=== PATIENT | male | born 1985 | race Asian ===

== ENCOUNTER 2025-09-06 10:14 | Outpatient (CLI) | payer BC ==
[2025-09-06 11:52] LABS: #Basophils 0.10 10x3/uL (0.0-0.2); #Eosinophils 0.13 10x3/uL (0.0-0.7); #Monocytes 0.54 10x3/uL (0.11-0.59); #Neutrophils 3.84 10x3/uL (1.40-6.50); %Basophils 1.5 % (0.0-1.0); %Eosinophils 1.9 % (0.0-10.0); %Lymphocytes 32.1 % (21.0-51.0); %Monocytes 7.9 % (0.0-10.0); %Neutrophils 56.0 % (42.0-75.0); Hematocrit 38.2 % (42.0-52.0); Hemoglobin 12.1 g/dL (14.0-18.0); Mean Corpuscular Hemoglobin 30.4 pg (27.0-31.0); Mean Corpuscular Volume 96.0 fL (78.0-98.0); Platelet Count 228 10x3/uL (130-400); Red Blood Cell (RBC) Count 3.98 mill/uL (4.70-6.10); White Blood Cell (WBC) Count 6.85 10x3/uL (4.8-10.8)
[2025-09-06 12:05] LABS: INR-International Normal Ratio 1.0; PTT 40.4 sec (22.9-36.1); Prothrombin Time 13.0 sec (12.0-14.7)
[2025-09-06 12:13] LABS: Anion Gap 13 mmol/L (10-20); BUN (Urea Nitrogen) 20 mg/dL (8.9-20.6); Calc. Creatinine Clearance 0 mL/min (70-130); Calcium 9.7 mg/dL (7.8-10.44); Carbon Dioxide 32 mmol/L (22-29); Chloride 98 mmol/L (98-107); Glucose 96 mg/dL (70-105); Potassium 3.9 mmol/L (3.5-5.1); Sodium 139 mmol/L (136-145)
== END 2025-09-06 10:15 | disposition home or self-care (01) ==
LOC: LABBT 10:14
PROVIDERS: ATTEND Surgery
DX: Z01.818 Encounter for other preprocedural examination (principal); N18.6 End stage renal disease
CPT/HCPCS: 71046; 80048; 85025; 85610; 85730; 93005; 93010

== ENCOUNTER 2025-09-10 09:32 | Day surgery (SDC) | payer BC ==
[2025-09-06 10:59] VITALS: BMI 50.8
[2025-09-10 11:35] LABS: Potassium 4.0 mmol/L (3.5-5.1)
[2025-09-10] MEDS ORDERED: Heparin 10,000 UNITS/ 10 ML VIAL ONE (11:58)
[2025-09-10] MEDS ORDERED: Heparin 5,000 UNITS/ML VIAL ONE (11:59)
[2025-09-10] MEDS ORDERED: Bupivacaine 0.25% HCL 30 ML VIAL ONE (11:59)
[2025-09-10] MEDS ORDERED: Lidocaine 1% (PF) 30 ML VIAL ONE (11:59)
[2025-09-10] MEDS ORDERED: PROPOFOL 60 ML ONE (12:01)
[2025-09-10] MEDS ORDERED: fentaNYL PF 100 MCG/2 ML SYRINGE ONE ×3 (12:09→15:27)
[2025-09-10] MEDS ORDERED: Vancomycin 1 GM/200 ML (FROZEN) BAG ONE (12:11)
[2025-09-10] MEDS ORDERED: Lidocaine 2% PF 100 mg/5 ml Syringe ONE (12:29)
[2025-09-10] MEDS ORDERED: SUCCINYLCHOLINE/SOD CL,ISO/PF 200 MG/10 ML SYRINGE FS ONE (12:29)
[2025-09-10] MEDS ORDERED: Bacitracin Zinc Ointment 30 gm TUBE ONE (13:25)
[2025-09-10] MEDS ORDERED: Ondansetron PF 4 MG/2 ML Vial ONE ×2 (14:37→16:17)
[2025-09-10] MEDS ORDERED: hydrALAZINE 20 MG/ML VIAL ONE (15:15)
[2025-09-10] MEDS ORDERED: HYDROmorphone 0.5 MG/0.5 ML SYRINGE ONE ×3 (15:22→15:45)
[2025-09-10] MEDS ORDERED: HYDROcodone/Acetaminophen 5/325 mg Tablet ONE (16:02)
== END 2025-09-10 16:47 | disposition home or self-care (01) ==
LOC: SDC 09:32
PROVIDERS: ATTEND Surgery
PROC: 03WY03Z Revision of Infusion Device in Upper Artery, Open Approach (ICD-10-PCS; principal; 2025-09-10)
DX: I12.0 Hypertensive chronic kidney disease with stage 5 chronic kidney disease or end stage renal disease (principal); N18.6 End stage renal disease; Z98.84 Bariatric surgery status; Z79.899 Other long term (current) drug therapy
CPT/HCPCS: 36416; 84132; A6258; C1713; J0169; J0360; J0665; J1171; J1642; J1644; J2003; J2405; J2704; J2720; J3373

== ENCOUNTER 2025-10-04 10:33 | Outpatient (CLI) | payer BC ==
[2025-10-04 11:26] LABS: #Basophils 0.08 10x3/uL (0.0-0.2); #Eosinophils 0.17 10x3/uL (0.0-0.7); #Monocytes 0.39 10x3/uL (0.11-0.59); #Neutrophils 3.62 10x3/uL (1.40-6.50); %Basophils 1.2 % (0.0-1.0); %Eosinophils 2.6 % (0.0-10.0); %Lymphocytes 33.8 % (21.0-51.0); %Monocytes 6.0 % (0.0-10.0); %Neutrophils 55.8 % (42.0-75.0); Hematocrit 34.2 % (42.0-52.0); Hemoglobin 10.9 g/dL (14.0-18.0); Mean Corpuscular Hemoglobin 30.9 pg (27.0-31.0); Mean Corpuscular Volume 96.9 fL (78.0-98.0); Platelet Count 246 10x3/uL (130-400); Red Blood Cell (RBC) Count 3.53 mill/uL (4.70-6.10); White Blood Cell (WBC) Count 6.50 10x3/uL (4.8-10.8)
[2025-10-04 11:38] LABS: INR-International Normal Ratio 1.0; PTT 37.8 sec (22.9-36.1); Prothrombin Time 13.5 sec (12.0-14.7)
[2025-10-04 11:41] LABS: Anion Gap 13 mmol/L (10-20); BUN (Urea Nitrogen) 23 mg/dL (8.9-20.6); Calc. Creatinine Clearance 0 mL/min (70-130); Calcium 9.2 mg/dL (7.8-10.44); Carbon Dioxide 31 mmol/L (22-29); Chloride 97 mmol/L (98-107); Glucose 95 mg/dL (70-105); Potassium 4.0 mmol/L (3.5-5.1); Sodium 137 mmol/L (136-145)
== END 2025-10-04 10:34 | disposition home or self-care (01) ==
LOC: LABBT 10:33
PROVIDERS: ATTEND Surgery
DX: Z01.812 Encounter for preprocedural laboratory examination (principal); N18.6 End stage renal disease; T82.590D Other mechanical complication of surgically created arteriovenous fistula, subsequent encounter
CPT/HCPCS: 80048; 85025; 85610; 85730

== ENCOUNTER 2025-10-05 06:23 | Inpatient (IN) | payer BC ==
[2025-10-05 08:40] LABS: Potassium 3.8 mmol/L (3.5-5.1)
[2025-10-05] MEDS ORDERED: Lidocaine 1% (PF) 30 ML VIAL ONE (09:19)
[2025-10-05] MEDS ORDERED: Heparin 5,000 UNITS/ML VIAL ONE (09:19)
[2025-10-05] MEDS ORDERED: Vancomycin 1 GM/200 ML (FROZEN) BAG ONE (09:29)
[2025-10-05] MEDS ORDERED: Ondansetron PF 4 MG/2 ML Vial ONE (09:38)
[2025-10-05] MEDS ORDERED: Lidocaine 1% PF 5 ML VIAL ONE (09:38)
[2025-10-05] MEDS ORDERED: PROPOFOL 200 MG/20 ML VIAL ONE (10:10)
[2025-10-05] MEDS ORDERED: fentaNYL PF 100 MCG/2 ML SYRINGE ONE ×2 (11:07→11:54)
[2025-10-05] MEDS ORDERED: HYDROmorphone 0.5 MG/0.5 ML SYRINGE ONE ×3 (11:07→13:37)
[2025-10-05] MEDS ORDERED: Acetaminophen 325 MG TAB PO PRN (11:26)
[2025-10-05 14:05] LABS: #Basophils 0.09 10x3/uL (0.0-0.2); #Eosinophils 0.05 10x3/uL (0.0-0.7); #Monocytes 0.23 10x3/uL (0.11-0.59); #Neutrophils 3.77 10x3/uL (1.40-6.50); %Basophils 1.5 % (0.0-1.0); %Eosinophils 0.9 % (0.0-10.0); %Lymphocytes 28.6 % (21.0-51.0); %Monocytes 3.9 % (0.0-10.0); %Neutrophils 64.6 % (42.0-75.0); Hematocrit 37.3 % (42.0-52.0); Hemoglobin 11.4 g/dL (14.0-18.0); Mean Corpuscular Hemoglobin 29.9 pg (27.0-31.0); Mean Corpuscular Volume 97.9 fL (78.0-98.0); Platelet Count 264 10x3/uL (130-400); Red Blood Cell (RBC) Count 3.81 mill/uL (4.70-6.10); White Blood Cell (WBC) Count 5.84 10x3/uL (4.8-10.8)
[2025-10-05 14:22] LABS: ALT (SGPT) 12 U/L (Less than 45); AST (SGOT) 21 U/L (11-34); Albumin 3.7 g/dL (3.1-4.5); Alkaline Phosphatase 75 U/L (40-110); Anion Gap 18 mmol/L (10-20); BUN (Urea Nitrogen) 37 mg/dL (8.9-20.6); Bilirubin, Total 0.3 mg/dL (0.3-1.2); Calc. Creatinine Clearance 38 mL/min (70-130); Calcium 9.9 mg/dL (7.8-10.44); Carbon Dioxide 26 mmol/L (22-29); Chloride 99 mmol/L (98-107); Globulin 3.6 g/dL (2.4-3.5); Glucose 100 mg/dL (70-105); Potassium 3.9 mmol/L (3.5-5.1); Sodium 139 mmol/L (136-145)
[2025-10-05 14:46] LABS: HBSAB Concentration 206.33 mIU/mL; Hep B Core Total Ab NONREACTIVE (NonReactive); Hep B Core Total Index 0.12 S/CO (0-0.79); Hep B Surf Ag NONREACTIVE S/CO (NonReactive); Hep C IgG Ab NONREACTIVE S/CO (NonReactive); Hep C Index 0.06 S/CO (0-0.79)
[2025-10-05 20:30] VITALS: BMI 52.4
[2025-10-05] MEDS: HYDROcodone/Acetaminophen 5/325 mg Tablet PO PRN (20:45)
[2025-10-06] MEDS: Losartan 25 MG TAB PO SCH (10:05)
[2025-10-06 10:14] LABS: #Basophils 0.06 10x3/uL (0.0-0.2); #Eosinophils 0.11 10x3/uL (0.0-0.7); #Monocytes 0.48 10x3/uL (0.11-0.59); #Neutrophils 7.50 10x3/uL (1.40-6.50); %Basophils 0.6 % (0.0-1.0); %Eosinophils 1.0 % (0.0-10.0); %Lymphocytes 22.1 % (21.0-51.0); %Monocytes 4.6 % (0.0-10.0); %Neutrophils 71.2 % (42.0-75.0); Hematocrit 35.5 % (42.0-52.0); Hemoglobin 11.5 g/dL (14.0-18.0); Mean Corpuscular Hemoglobin 30.6 pg (27.0-31.0); Mean Corpuscular Volume 94.4 fL (78.0-98.0); Platelet Count 240 10x3/uL (130-400); Red Blood Cell (RBC) Count 3.76 mill/uL (4.70-6.10); White Blood Cell (WBC) Count 10.53 10x3/uL (4.8-10.8)
[2025-10-06 10:16] LABS: Plasma Cells 0 % (0-0); Platelet Adequacy Comment Appears Adequate
[2025-10-06 11:16] LABS: Chloride 99 mmol/L (98-107); Potassium 3.6 mmol/L (3.5-5.1); Sodium 139 mmol/L (136-145)
[2025-10-06 11:17] LABS: Calcium 9.7 mg/dL (7.8-10.44); Glucose 101 mg/dL (70-105)
[2025-10-06 11:19] LABS: Anion Gap 21 mmol/L (10-20); Carbon Dioxide 23 mmol/L (22-29)
[2025-10-06 11:21] LABS: BUN (Urea Nitrogen) 25 mg/dL (8.9-20.6); Calc. Creatinine Clearance 48 mL/min (70-130)
[2025-10-06] MEDS: HYDROcodone/Acetaminophen 7.5/325 mg Tablet PO PRN (14:15)
[2025-10-07 06:23] LABS: #Basophils 0.08 10x3/uL (0.0-0.2); #Eosinophils 0.18 10x3/uL (0.0-0.7); #Monocytes 0.50 10x3/uL (0.11-0.59); #Neutrophils 3.61 10x3/uL (1.40-6.50); %Basophils 1.1 % (0.0-1.0); %Eosinophils 2.5 % (0.0-10.0); %Lymphocytes 37.5 % (21.0-51.0); %Monocytes 7.1 % (0.0-10.0); %Neutrophils 51.1 % (42.0-75.0); Hematocrit 31.2 % (42.0-52.0); Hemoglobin 10.2 g/dL (14.0-18.0); Mean Corpuscular Hemoglobin 31.0 pg (27.0-31.0); Mean Corpuscular Volume 94.8 fL (78.0-98.0); Platelet Count 221 10x3/uL (130-400); Red Blood Cell (RBC) Count 3.29 mill/uL (4.70-6.10); White Blood Cell (WBC) Count 7.07 10x3/uL (4.8-10.8)
[2025-10-07 06:38] LABS: Anion Gap 14 mmol/L (10-20); BUN (Urea Nitrogen) 29 mg/dL (8.9-20.6); Calc. Creatinine Clearance 40 mL/min (70-130); Calcium 9.2 mg/dL (7.8-10.44); Carbon Dioxide 27 mmol/L (22-29); Chloride 101 mmol/L (98-107); Glucose 85 mg/dL (70-105); Potassium 3.7 mmol/L (3.5-5.1); Sodium 138 mmol/L (136-145)
[2025-10-08] MEDS: Heparin 10,000 UNITS/ 10 ML VIAL CATH PRN (11:51)
[2025-10-08] MEDS: Mupirocin 1 GM TUBE NASAL DECOLONIZATION NASAL SCH (20:16)
[2025-10-09 06:02] LABS: Anion Gap 15 mmol/L (10-20); BUN (Urea Nitrogen) 29 mg/dL (8.9-20.6); Calc. Creatinine Clearance 44 mL/min (70-130); Calcium 8.9 mg/dL (7.8-10.44); Carbon Dioxide 26 mmol/L (22-29); Chloride 102 mmol/L (98-107); Glucose 87 mg/dL (70-105); Potassium 4.1 mmol/L (3.5-5.1); Sodium 139 mmol/L (136-145)
[2025-10-09 06:56] LABS: #Basophils 0.09 10x3/uL (0.0-0.2); #Eosinophils 0.21 10x3/uL (0.0-0.7); #Monocytes 0.51 10x3/uL (0.11-0.59); #Neutrophils 3.02 10x3/uL (1.40-6.50); %Basophils 1.4 % (0.0-1.0); %Eosinophils 3.3 % (0.0-10.0); %Lymphocytes 37.9 % (21.0-51.0); %Monocytes 8.1 % (0.0-10.0); %Neutrophils 48.0 % (42.0-75.0); Hematocrit 32.1 % (42.0-52.0); Hemoglobin 10.3 g/dL (14.0-18.0); Mean Corpuscular Hemoglobin 30.6 pg (27.0-31.0); Mean Corpuscular Volume 95.3 fL (78.0-98.0); Platelet Count 213 10x3/uL (130-400); Red Blood Cell (RBC) Count 3.37 mill/uL (4.70-6.10); White Blood Cell (WBC) Count 6.30 10x3/uL (4.8-10.8)
[2025-10-09 10:02] VITALS: BMI 52.4
[2025-10-10] MEDS: EPOETIN ALFA-EPBX (ESRD) 10,000 UNITS/ML VIAL SC SCH (14:36)
[2025-10-10 17:58] VITALS: BP 145/92; TEMP 98.2
== END 2025-10-10 18:18 | disposition home or self-care (01) | DRG 919 ==
LOC: SDC 06:23 → SURG A 11:26
PROVIDERS: ADMIT Internal Medicine; ATTEND Internal Medicine
PROC: 0XP70YZ Removal of Other Device from Left Upper Extremity, Open Approach (ICD-10-PCS; principal; 2025-10-05)
PROC: 3E03329 Introduction of Other Anti-infective into Peripheral Vein, Percutaneous Approach (ICD-10-PCS; 2025-10-05)
DX: T85.79XA Infection and inflammatory reaction due to other internal prosthetic devices, implants and grafts, initial encounter (principal); N18.6 End stage renal disease; M96.843 Postprocedural seroma of a musculoskeletal structure following other procedure; Z88.8 Allergy status to other drugs, medicaments and biological substances; I12.9 Hypertensive chronic kidney disease with stage 1 through stage 4 chronic kidney disease, or unspecified chronic kidney disease; Z98.890 Other specified postprocedural states; Z79.899 Other long term (current) drug therapy; E83.39 Other disorders of phosphorus metabolism; D63.1 Anemia in chronic kidney disease
CPT/HCPCS: 36415; 36416; 80048; 84132; 85025; 86704; 86706; 86803; 87070; 87076; 87077; 87205; 87340; 90935; 97139; A6258; G0257; J1100; J1171; J1644; J2003; J2405; J2543; J2704; J3010; J3373; Q5105